=== PATIENT | female | born 1985 | race Hispanic/Latino ===

== ENCOUNTER 2019-12-17 19:20 | Emergency (ER) | payer OTHER, SELFPAY ==
[2019-12-17 19:26] VITALS: BP 131/80; PULSE 94; RESP 16; TEMP 36.8; O2SAT 100
--- NOTE | 2019-12-17 19:46 | ED.FEMALEGU ---
HPI - Female Genitourinary General Chief complaint: Urogenital-Female Stated complaint: uti Time Seen by Provider: 12/17/19 19:31 Source: patient and RN notes reviewed Mode of arrival: ambulatory Limitations: no limitations History of Present Illness HPI Narrative: Patient presents today complaining of a 2-week history of dysuria and suprapubic pressure. Symptoms have been worsening since onset. Denies hematuria, fever, nausea, vomiting, flank pain. Reports history of interstitial cystitis. She has not contacted her urologist since onset of symptoms. She has not tried anything at home for symptom relief. MD elicited complaint: dysuria Related Data Home Medications Medication Instructions Recorded Confirmed hydrocodone-acetaminophen 1 tablet PO Q6H PRN 12/17/19 12/17/19 pantoprazole 40 mg PO HS 12/17/19 12/17/19 Allergies Allergy/AdvReac Type Severity Reaction Status Date / Time No Known Allergies Allergy Verified 12/17/19 19:33 Review of Systems Review of Systems: Narrative: CONSTITUTIONAL: Denies body aches, fever, chills, or sweats. EYES: Denies visual changes, redness, or discharge. ENT: Denies rhinorrhea, congestion, sore throat, or otalgia. CARDIOVASCULAR: Denies chest pain, palpitations, or edema. RESPIRATORY: Denies cough or dyspnea. GASTROINTESTINAL: Denies abdominal pain, nausea, vomiting, or diarrhea. GENITOURINARY: Denies hematuria. +Dysuria, suprapubic pressure SKIN: Denies rash, itching, or wounds. MUSCULOSKELETAL: Denies back pain, joint pain, or myalgia. NEUROLOGIC: Denies headache, numbness, tingling, or weakness. PSYCH: Denies depression or anxiety. PMFSH Comments At time of signature, I have reviewed and agree with nursing past medical, surgical, social and family history unless otherwise noted. Please see nursing chart for further information. There is no relevant family history pertinent to the presenting complaint Exam Narrative: Exam Narrative: GENERAL: Well-appearing, well-nourished, and in moderate pain distress, fidgety HEAD: Normocephalic, atraumatic. EYES: EOMI. No redness or drainage. Conjunctivae normal. ENT: Mucous membranes pink and moist. NECK: Normal AROM. CHEST: No respiratory distress. Clear to auscultation. HEART: Regular rate and rhythm. No murmur appreciated. Normal peripheral pulses. ABDOMEN: Soft, nondistended, normal active bowel sounds.-CVAT. + Suprapubic tenderness MUSCULOSKELETAL: No bony tenderness. EXTREMITIES: Normal range of motion. No edema. SKIN: Warm, dry, no rash. Capillary refill normal. Normal skin turgor. NEURO: No focal deficits. Alert and oriented x3. Gait steady. PSYCH: Normal affect. No signs of depression or anxiety. Course Vital Signs Vital signs: Vital Signs Temperature 98.3 F 12/17/19 19:26 Pulse Rate 94 12/17/19 19:26 Respiratory Rate 16 12/17/19 19:26 Blood Pressure 131/80 12/17/19 19:26 Pulse Oximetry 100 12/17/19 19:26 Temperature 98.3 F 12/17/19 19:26 Pulse Rate 94 12/17/19 19:26 Respiratory Rate 16 12/17/19 19:26 Blood Pressure 131/80 12/17/19 19:26 Pulse Oximetry 100 12/17/19 19:26 Reviewed. Pt has been instructed to follow up with her PCP regarding her elevated blood pressure today. MDM - Female Genitourinary Differential Diagnosis Differential diagnosis: Likely urinary tract infection, cystitis and other (Interstitial cystitis exacerbation) Lab Data Attestation: I reviewed the patient's lab results. Labs: Urine Glucose Negative Reference Range: Negative Urine Bilirubin Negative Reference Range: Negative Urine Ketone Negative Reference Range: Negative Urine Specific [place] 1.030 Reference Range:1.001-1.035 Urine Blood Trace Reference Range: Negative * * Urine pH 5.5 Reference Range: 5.
== END 2019-12-17 19:53 | disposition home or self-care (01) ==
PROVIDERS: Emergency Provider Nurse Practitioner; PCP Internal Medicine
DX: N30.10 Interstitial cystitis (chronic) without hematuria (principal)
CPT/HCPCS: 81003; 87086; 87088; 99213; G0463

== ENCOUNTER 2021-05-23 15:05 | Outpatient (CLI) | payer BC, SELFPAY ==
--- NOTE | ~2021-05-23 | CT_ITS ---
EXAMINATION: CT abdomen pelvis w con DATE: 05/23/2021 15:44 INDICATION: Left-sided abdominal pain. TECHNIQUE: Computed tomography (CT) of the abdomen and pelvis was performed with 100 mL Omnipaque 350 intravenous contrast. Automated exposure control and iterative reconstruction technique were employe d. The dose-length product was 797.16 mGy-cm. COMPARISON: CT abdomen and pelvis 11/09/2004 FINDINGS: The visualized portions of the lung bases demonstrate minimal atelectasis. No pleural effus ion. The heart size is normal. No pericardial effusion. The liver, gallbladder, spleen, pancreas, adr enal glands, and kidneys are normal. There are no dilated loops of bowel. The appendix is not visuali zed. There is a 1.8 cm subserosal uterine fibroid. There are no pathologically enlarged lymph nodes. There is no free intraperitoneal fluid. There is mild lumbar spondylosis. IMPRESSION: 1. Uterine fibroid. Reviewed, dictated and finalized at location A. MATIC ENGRAVER IMPRESSION: 1. Uterine fibroid.
== END 2021-05-23 15:06 ==
PROVIDERS: Visit Provider Physician Assistant Medical
DX: R10.9 Unspecified abdominal pain (principal); K57.92 Diverticulitis of intestine, part unspecified, without perforation or abscess without bleeding; D25.9 Leiomyoma of uterus, unspecified
CPT/HCPCS: 74177; Q9967

== ENCOUNTER → 2021-08-20 09:07 | Outpatient (CLI) | payer BC, SELFPAY ==
--- NOTE | ~2021-08-20 | MMUS_ITS ---
EXAMINATION: MM diagnostic michael BI w celio, US breast RT limited HISTORY: Palpable right axillary abnormality. TECHNIQUE: Additional 3-D tomosynthesis images of the breasts were performed and synthetic 2-D images were generated. CAD analysis was submitted and interpreted. High resolution Limited right breast ult rasound was performed. COMPARISON: None BREAST PARENCHYMAL COMPOSITION: Breast composed of scattered areas of fibroglandular density. FINDINGS: MAMMOGRAPHIC FINDINGS: There is a mass superiorly in the right breast, anterior third, not well seen on CC view. There is a mass in the right axilla which does not demonstrate a normal fatty hilum. ULTRASOUND: Limited right breast ultrasound: In the right axilla in the area of palpable concern there is an irre gular shaped hypoechoic mass without normal fatty hilum measuring 1.9 x 1.5 x 2 cm. There is internal vascularity. There is posterior acoustic enhancement. Also in the right axilla there is a 2 cm lymph node with fatty hilum, likely reactive. At 11-12:00 position, 2.5 cm from the nipple there is an ova l hypoechoic mass measuring 1 cm maximum dimension with internal echogenic foci, possibly calcificati ons. IMPRESSION: 1. Abnormal masses in the right breast at 11-12:00 position, 2.5 cm from the nipple and in the axilla . 2. Ultrasound-guided right breast biopsies recommended. BI-RADS category 4, suspicious findings. Reviewed, dictated and finalized at location A. EARER IMPRESSION: 1. Abnormal masses in the right breast at 11-12:00 position, 2.5 cm from the ni pple and in the axilla. 2. Ultrasound-guided right breast biopsies recommended. BI-RADS category 4, suspicious findings.
== END ==
PROVIDERS: Visit Provider Nurse Practitioner
DX: R59.0 Localized enlarged lymph nodes (principal); R92.8 Other abnormal and inconclusive findings on diagnostic imaging of breast
CPT/HCPCS: 76642; 77062; 77066; G0279

== ENCOUNTER 2022-06-04 09:34 | Outpatient (CLI) | payer BC, SELFPAY ==
[2022-06-04 10:43] LABS: Cholesterol 222 mg/dL (0-200); HDL Direct 38 mg/dL; Triglycerides 188 mg/dL (<150)
[2022-06-04 10:55] LABS: LDL Cholesterol Direct 120 mg/dL
[2022-06-04 11:16] LABS: Thyroid Stimulating Hormone 0.267 uIU/mL (0.465-4.680)
[2022-06-04 11:56] LABS: Free T4 Free Thyroxine 0.99 ng/mL (0.78-2.19)
[2022-06-09 10:50] LABS: Testosterone Total 84 ng/dL (2-45)
== END 2022-06-04 09:35 | disposition home or self-care (01) ==
PROVIDERS: PCP Family Medicine; Visit Provider Obstetrics & Gynecology Gynecology
DX: E78.5 Hyperlipidemia, unspecified (principal); N92.6 Irregular menstruation, unspecified
CPT/HCPCS: 36415; 80061; 84403; 84439; 84443